=== PATIENT | female | born 1985 | race African-American/Black ===

== ENCOUNTER 2019-11-09 19:15 | Emergency (ER) | payer BC, MEDICAID ==
--- NOTE | 2019-11-09 19:33 | ER Document Report ---
ED Medical Screen (RME) - General Chief Complaint: Vag Bleeding, +preg <12wks Stated Complaint: VAGINAL BLEEDING/7WEEKS Time Seen by Provider: 11/09/19 19:29 Primary Care Provider: DOM MAN MD [Primary Care Provider] - Follow up as needed Mode of Arrival: Wheelchair Information source: Patient Notes: 34-year-old female patient G3, P1 presents to the emergency department with vaginal bleeding in the setting of . Patient reports she is approximately 7 weeks and began bleeding about 45 minutes prior to arrival. She denies passage of any clots or tissue. Upon review of [facility] records she is Rh+ so no RhoGam work-up indicated. Patient calm, cooperative, breaths equal and unlabored. I have greeted and performed a rapid initial assessment of this patient. A comprehensive ED assessment and evaluation of the patient, analysis of test results and completion of the medical decision making process will be conducted by additional ED providers. I have specifically instructed the patient or family members with the patient to immediately return to any nursing staff should anything change in the patient's condition or with their chief complaint. - Related Data Allergies/Adverse Reactions: bee venom protein (honey bee) Allergy (Verified 11/09/19 19:29) tomato Allergy (Verified 11/09/19 19:29) Past Medical History - Social History Family history: Reviewed & Not Pertinent Renal/ Medical History: Denies: Hx Ovarian Cysts, Hx Pelvic Inflammatory Disease Past Surgical History: Reports: Hx Section - Immunizations Immunizations up to date: Yes Hx Diphtheria, Pertussis, Tetanus Vaccination: Yes Physical Exam - Vital signs Vitals: Temp Pulse Resp BP Pulse Ox 97.5 F 98 16 130/89 H 100 11/09/19 19:20 11/09/19 19:20 11/09/19 19:20 11/09/19 19:20 11/09/19 19:20 Course - Vital Signs Vital signs: Temp Pulse Resp BP Pulse Ox 97.5 F 98 16 130/89 H 100 11/09/19 19:20 11/09/19 19:20 11/09/19 19:20 11/09/19 19:20 11/09/19 19:20 Doctor's Discharge - Discharge Referrals: DOM MAN MD [Primary Care Provider] - Follow up as needed
[2019-11-09 20:04] LABS: ABSOLUTE EOSINOPHILS # (AUTO) 0.1 10^3/uL (0.0-0.6); ABSOLUTE LYMPHOCYTES (AUTO) 2.1 10^3/uL (0.5-4.7); ABSOLUTE MONOCYTES (AUTO) 0.6 10^3/uL (0.1-1.4); ABSOLUTE NEUT (AUTO) 6.1 10^3/uL (1.7-8.2); BASOPHILS % (AUTO) 0.4 % (0-2); EOSINOPHILS % (AUTO) 0.9 % (0-6); HEMATOCRIT 35.3 % (36.0-47.0); LYMPHOCYTES % (AUTO) 23.4 % (13-45); MEAN CORPUSCULAR HEMOGLOBIN 29.7 pg (27.0-33.4); MEAN CORPUSCULAR HGB CONC 34.1 g/dL (32.0-36.0); MEAN CORPUSCULAR VOLUME 87 fl (80-97); MONOCYTES % (AUTO) 6.6 % (3-13); PLATELET COUNT 304 10^3/uL (150-450); RED BLOOD COUNT 4.05 10^6/uL (3.72-5.28); RED CELL DISTRIBUTION WIDTH 15.4 % (11.5-14.0); SEGMENTED NEUTROPHILS % (AUTO) 68.7 % (42-78); TOTAL CELLS COUNTED % (AUTO) 100 %; WHITE BLOOD COUNT 8.9 10^3/uL (4.0-10.5)
[2019-11-09 20:18] LABS: ANION GAP 7 (5-19); BLOOD UREA NITROGEN 13 mg/dL (7-20); CALCIUM 9.1 mg/dL (8.4-10.2); CARBON DIOXIDE 26 mmol/L (22-30); CHLORIDE 101 mmol/L (98-107); GLUCOSE 95 mg/dL (75-110); POTASSIUM 3.8 mmol/L (3.6-5.0)
--- NOTE | 2019-11-09 20:40 | ER Document Report ---
ED GI/ - General Chief Complaint: Vag Bleeding, +preg <12wks Stated Complaint: VAGINAL BLEEDING/7WEEKS Time Seen by Provider: 11/09/19 19:29 Primary Care Provider: DOM MAN MD [Primary Care Provider] - Follow up as needed Mode of Arrival: Ambulatory Information source: Patient Notes: 34-year-old female presented to ED for complaint of vaginal bleeding with pelvic pain earlier but no longer having any pelvic pain. - HPI Patient complains to provider of: , Vaginal bleeding Onset: This evening Timing/Duration: Better Quality of pain: Cramping Severity in ED: None Pain Level: Denies Vaginal bleeding (Compared to normal period): Similar - Dark red, Passing clots : 3 Para: 1 Abortions: 0 OB ultrasound done: Yes Associated symptoms: Other - Vaginal bleeding Exacerbated by: Denies Relieved by: Denies Similar symptoms previously: No Recently seen / treated by doctor: Yes - Related Data Allergies/Adverse Reactions: bee venom protein (honey bee) Allergy (Verified 11/09/19 19:29) tomato Allergy (Verified 11/09/19 19:29) Past Medical History - General Information source: Patient Last Menstrual Period: 09/19/2019 - Social History Smoking Status: Never Smoker Frequency of alcohol use: None Drug Abuse: None Lives with: Family Family History: None Patient has suicidal ideation: No Patient has homicidal ideation: No - Past Medical History Cardiac Medical History: Reports: None Pulmonary Medical History: Reports: None EENT Medical History: Reports: None Neurological Medical History: Reports: None Endocrine Medical History: Reports: None Renal/ Medical History: Reports: None Malignancy Medical History: Reports: None GI Medical History: Reports: None Musculoskeletal Medical History: Reports None Skin Medical History: Reports None Psychiatric Medical History: Reports: None Traumatic Medical History: Reports: None Infectious Medical History: Reports: None Past Surgical History: Reports: Hx Section - 2 - Immunizations Immunizations up to date: Yes Hx Diphtheria, Pertussis, Tetanus Vaccination: Yes Review of Systems - Review of Systems Constitutional: No symptoms reported EENT: No symptoms reported Cardiovascular: No symptoms reported Respiratory: No symptoms reported Gastrointestinal: No symptoms reported Genitourinary: No symptoms reported Female Genitourinary: , Vaginal bleeding Musculoskeletal: No symptoms reported Skin: No symptoms reported Hematologic/Lymphatic: No symptoms reported Neurological/Psychological: No symptoms reported -: Yes All other systems reviewed and negative Physical Exam - Vital signs Vitals: Temp Pulse Resp BP Pulse Ox 97.5 F 98 16 130/89 H 100 11/09/19 19:20 11/09/19 19:20 11/09/19 19:20 11/09/19 19:20 11/09/19 19:20 Interpretation: Normal - General General appearance: Appears well, Alert - HEENT Head: Normocephalic, Atraumatic Eyes: Normal Pupils: PERRL - Respiratory Respiratory status: No respiratory distress Chest status: Nontender Breath sounds: Normal Chest palpation: Normal - Cardiovascular Rhythm: Regular Heart sounds: Normal auscultation Murmur: No - Abdominal Inspection: Normal Distension: No distension Bowel sounds: Normal Tenderness: Nontender Organomegaly: No organomegaly - Genitourinary External exam: Normal Speculum exam: Cervix closed Vaginal bleeding: Moderate - With large clots Bimanuel exam: Normal - Back Back: Normal, Nontender - Extremities General upper extremity: Normal inspection, Nontender, Normal color, Normal ROM, Normal temperature General lower extremity: Normal inspection, Nontender, Normal color, Normal ROM, Normal temperature, Normal weight bearing. No: Pepper's sign - Neurological Neuro grossly intact: Yes Cognition: Normal Orientation: AAOx4 [place] Coma Scale Eye Opening: Spontaneous [place] Coma Scale Verbal: Oriented Arvin Coma Scale Motor: Obeys Commands [place] Coma Scale Total: 15 Speech: Normal Motor strength normal: LUE, RUE, LLE, RLE Sensory: Normal - Psychological Associated symptoms: Normal affect, Normal mood - Skin Skin Temperature: Warm Skin Moisture: Dry Skin Color: Normal Course - Re-evaluation Re-evalutation: 11/09/19 23:44 Discussed labs and ultrasound with patient written report of labs and ultrasound given to patient for follow-up with [facility] REPAIRER. She states she has an appointment with [facility] on 12 November for follow-up with her . Patient was given instructions to return to the ED for any increase in bleeding or pain or any other concerns before following up with her [facility] REGISTER REPAIRER. Patient verbalized understanding and agreement with treatment plan patient was discharged home in stable condition. - Vital Signs Vital signs: Temp Pulse Resp BP Pulse Ox 98.3 F 82 16 143/83 H 100 11/09/19 23:07 11/09/19 23:07 11/09/19 23:07 11/09/19 23:07 11/09/19 23:07 - Laboratory Result Diagrams: 11/09/19 19:43 11/09/19 19:43 Laboratory results interpreted by me: 11/09/19 11/09/19 11/09/19 19:43 19:43 19:43 Hct 35.3 L RDW 15.4 H Sodium 133.8 L Beta HCG, Quant 515010.00 H Urine Blood LARGE H - Diagnostic Test Radiology reviewed: Image reviewed, Reports reviewed Discharge - Discharge Clinical Impression: Vaginal bleeding affecting early Condition: Stable Disposition: HOME, SELF-CARE Additional Instructions: : You are . care is best started as early in as possible. If you're unsure about continuing this , you should discuss this with your physician or with hotel front office manager at [facility]. You should take only medications approved by your physician. Acetaminophen can safely be taken for minor pains. As a rule, medication for chronic conditions such as asthma or seizures can safely be continued. You should discuss with the physician every medicine you take. Any regular exercise program can be continued. Talk to your physician, however, before engaging in competitive or demanding sports. Alcohol, smoking, and "street drugs" are dangerous to your baby. Cocaine is especially dangerous. Don't use any illicit drugs! BLEEDING DURING EARLY : You have been evaluated for passing blood while . While we take this symptom very seriously, most women with your degree of bleeding will go on to have a perfectly normal baby. At this time, there is no indication that a miscarriage will occur. (A miscarriage occurs when the fetus is abnormal. There is no medicine or treatment to prevent it.) A more serious cause of bleeding is tubal (or ectopic) . An ultrasound usually can show whether the is in the uterus or in the tube. Sometimes in early , no fetus is seen. In this case, careful follow-up, including repeat blood tests and repeat ultrasound, is necessary. Do not douche or have sex for at least a week, or until OK'd by the doctor. Don't use tampons. Call the doctor or return for re-examination if there is an increase in bleeding or cramping, extreme weakness, fainting, new abdominal pain, fever, or passage of tissue. I have given you a copy of your lab results and your ultrasound report. You do have a 7-week 6-day old fetus with a heart rate of 169. The cervix is closed at this time. Is [facility] on Tuesday to let them know that you were in the emergency room for vaginal bleeding tonight. I have given you the reports for the blood in the ultrasound that she can discuss with your doctor. If you have any increase in bleeding or pain you are always welcome to come back and be reevaluated. Your gonorrhea and Chlamydia results will not be back for a couple hours. If anything is on the results you will be notified. She states she has no concerns at this time. Your blood type is O+. FOLLOW-UP CARE: If you have been referred to a physician for follow-up care, call the physicians office for an appointment as you were instructed or within the next two days. If you experience worsening or a significant change in your symptoms (very heavy bleeding with large clots of blood, passage of tissue, more severe abdominal / pelvic pain or cramping, feeling faint or severe weakness, fever, etc.), notify the physician immediately or return to the Emergency Department at any time for re-evaluation. OBSTETRIC-GYNECOLOGIC (OB-CALENDER LET OFF HELPER) PHYSICIANS IN [place]: [facility] [address] [place] [address] [phone] For active duty and dependents diagnosed with a threatened or miscarriage, you should follow up in the following manner: Standard patients who have a local civilian provider should follow up with that provider. Patients of the Family Practice [facility] should call your Team Nurse at 8:00 am the following morning for further instructions. If you are neither a Standard patient nor a patient of the Family Practice Clinic, you should follow up at the [facility] ([facility]). Patients already enrolled in the [facility], [facility] patients not assigned to the Family Practice Clinic, and Active Duty patients not assigned to Family Practice Clinic should report to the [facility] Lab at 8:00 am the next morning that the [facility] is open and then you will be seen in the OB Clinic at 11:00 am. Forms: Elevated Blood Pressure Referrals: DOM MAN MD [Primary Care Provider] - Follow up as needed
[2019-11-09 20:57] LABS: APPEARANCE,URINE CLEAR; BILIRUBIN,URINE NEGATIVE (NEGATIVE); COLOR,URINE YELLOW; GLUCOSE, URINE NEGATIVE (NEGATIVE); KETONES,URINE NEGATIVE (NEGATIVE); LEUKOCYTE ESTERASE,URINE NEGATIVE (NEGATIVE); NITRITE,URINE NEGATIVE (NEGATIVE); PROTEIN,URINE NEGATIVE (NEGATIVE); URINE SPECIFIC GRAVITY 1.014; UROBILINOGEN,URINE NEGATIVE mg/dL (<2.0)
[2019-11-09 21:40] LABS: T.VAGINALIS (WET MOUNT) NO TRICHOMONAS SEEN; YEAST (WET MOUNT) NO YEAST SEEN
[2019-11-09 21:41] LABS: RBCS (WET MOUNT) 4+ RBCS SEEN; WBCS (WET MOUNT) RARE WBCS SEEN
--- NOTE | 2019-11-09 22:13 | RADIOLOGY REPORT (SQ) ---
EXAM DESCRIPTION: US TRANSVAGINAL COMPLETED DATE/TME: 11/09/2019 19:30 CLINICAL HISTORY: 34 years, Female, vag bleed, +preg COMPARISON: None. TECHNIQUE: Axial 2-D grayscale images of the pelvis were acquired. Doppler was utilized. LIMITATIONS: None. FINDINGS: Uterus measures 11.2 x 6.6 x 7.5 cm in size. An intrauterine gestational sac is identified. [place]-rump length is 1.55 cm for an estimated gestational age of 7 weeks and 6 days. Estimated date of delivery is 06/21/2020. heart rate is 169 bpm. Yolk sac is present. Cervix is closed, measuring 3 cm in length. Right ovary measures 4.5 x 2.8 x 3.0 cm in size. It contains an anechoic lesion measuring 2.2 x 2.0 x 1.9 cm in size which demonstrates peripheral Doppler flow indicative of a corpus luteal cyst. Normal low resistance arterial waveforms/venous flow is noted about the right ovary. Left ovary was not visualized. No significant free fluid is identified within the imaged pelvis. IMPRESSION: Single live intrauterine , as above. No acute findings. Corpus luteal cyst about the right ovary. copyright 2010 [employer]- All Rights Reserved
[2019-11-09 23:07] VITALS: BP 143/83
[2019-11-09 23:16] LABS: CHLAM PCR NOT DETECTED (NOT DETECT)
== END 2019-11-09 23:07 | disposition home or self-care (01) ==
LOC: ER 19:15
DX: O20.9 Hemorrhage in early pregnancy, unspecified (principal); Z3A.01 Less than 8 weeks gestation of pregnancy
CPT/HCPCS: 36415; 76817; 80048; 81001; 84702; 85025; 87210; 87491; 87591; 99284

== ENCOUNTER 2020-03-05 20:02 | Outpatient (CLI) | payer BC, MEDICAID ==
[2020-03-05] MEDS ORDERED: RINGERS SOLUTION,LACTATED 1,000 ML IV PRN (20:48)
[2020-03-05 20:57] LABS: URINE AMPHETAMINES SCREEN NEGATIVE; URINE BARBITURATES SCREEN NEGATIVE; URINE BENZODIAZEPINES SCREEN NEGATIVE; URINE COCAINE SCREEN NEGATIVE; URINE MARIJUANA (THC) SCREEN NEGATIVE; URINE METHADONE SCREEN NEGATIVE; URINE PHENCYCLIDINE SCREEN NEGATIVE
[2020-03-05 20:59] LABS: APPEARANCE,URINE CLOUDY; BILIRUBIN,URINE NEGATIVE (NEGATIVE); COLOR,URINE YELLOW; GLUCOSE, URINE NEGATIVE (NEGATIVE); KETONES,URINE NEGATIVE (NEGATIVE); LEUKOCYTE ESTERASE,URINE LARGE (NEGATIVE); NITRITE,URINE NEGATIVE (NEGATIVE); PROTEIN,URINE 100 mg/dL (NEGATIVE); URINE SPECIFIC GRAVITY 1.011; UROBILINOGEN,URINE NEGATIVE mg/dL (<2.0)
--- NOTE | 2020-03-05 21:35 | RADIOLOGY REPORT (SQ) ---
US PELVIS HISTORY: Evaluate fetus. COMPARISON: None. TECHNIQUE: Grayscale, color Doppler, and spectral Doppler ultrasound images of the pelvis were obtained. FINDINGS: There is a single live intrauterine fetus in variable presentation. The cervix is closed and measures 3 cm. The placenta is fundal. The heart rate is 189 bpm. [place] is 21.2 cm. There is borderline dilation of the bilateral renal pelvis, measuring 3 mm on the left and 5 mm on the right. Estimated gestational age by ultrasound is 24 weeks 5 days. IMPRESSION: 1. Single live IUP of 24 weeks 5 days. 2. Close cervix measuring 3 cm. 3. Borderline dilation of the bilateral renal pelvis; attention on follow-up imaging is suggested.
[2020-03-05] MEDS ORDERED: CEFTRIAXONE INJ 1000 MG VIAL IV ONE (21:57)
[2020-03-05] MEDS ORDERED: CEFTRIAXONE INJ 1000 MG VIAL ONE (21:59)
== END 2020-03-05 23:09 | disposition home or self-care (01) ==
LOC: LC 20:02
PROVIDERS: ATTEND Obstetrics & Gynecology
DX: O23.43 Unspecified infection of urinary tract in pregnancy, third trimester (principal); Z3A.24 24 weeks gestation of pregnancy
CPT/HCPCS: 59025; 87086; 87088; 81001; 80307; 76815; J0696; 87186